=== PATIENT | female | born 1995 | race Hispanic/Latino ===

== ENCOUNTER 2025-07-28 13:08 | Outpatient (CLI) | payer OTHER ==
[2025-07-28] MEDS ORDERED: Sodium Bicarbonate 2.5 MEQ/5 ML SDV ONE (13:52)
== END 2025-07-28 15:15 | disposition short-term general hospital (02) ==
LOC: CT 13:08
PROVIDERS: ATTEND Family Medicine
PROC: 0W9H30Z Drainage of Retroperitoneum with Drainage Device, Percutaneous Approach (ICD-10-PCS; principal; 2025-07-28)
DX: O86.03 Infection of obstetric surgical wound, organ and space site (principal)
CPT/HCPCS: 49406; 77002; 87070; 87077; 87205; C1729; J2250; J3010